=== PATIENT | female | born 1970 | race Caucasian/White ===

== ENCOUNTER 2017-03-31 22:28 | Emergency (ER) | payer BC, OTHER ==
[2017-03-31] MEDS ORDERED: Benoxinate/Fluorescein 0.4-0.25% Ophth Soln 5 ML Bottle EYELF ONE (22:29)
[2017-03-31] MEDS ORDERED: Tetracaine 0.5% 2 ML Bottle ONE (22:37)
[2017-03-31] MEDS ORDERED: Non-Formulary Medication 1 Each EYELF STA (22:45)
[2017-03-31 22:53] VITALS: BP 154/94
--- NOTE | 2017-03-31 22:57 | EDM.PDOC ---
ED HPI GENERAL MEDICAL PROBLEM - General Chief Complaint: Eye Problems Stated Complaint: SWOLLEN EYE Time Seen by Provider: 03/31/17 22:30 Source of Information: Reports: Patient History Limitations: Reports: No Limitations - History of Present Illness INITIAL COMMENTS - FREE TEXT/NARRATIVE: 46 YO WF presents to ER with sensation of a foreign body in her left eye. Pt reports she was driving home tonight when she felt something in her eye. Pt syayes she tried to remove it but it became painful and irritated prompting ER visit. Onset: Today Onset Date: 03/31/17 Onset Time: 21:00 Quality: Reports: Ache Severity: Mild Improves with: Reports: None Worsens with: Reports: None Context: Reports: Activity Associated Symptoms: Reports: No Other Symptoms - Related Data Allergies Allergy/AdvReac Type Severity Reaction Status Date / Time No Known Allergies Allergy Verified 03/31/17 22:51 Home Meds: Home Meds Atenolol [Atenolol] 100 mg PO DAILY 03/31/17 [History] Ciprofloxacin [Ciloxan 0.3% Ophth Soln] 2.5 ml EYEBOTH Q4HR #10 bottle 03/31/17 [Rx] Furosemide [Furosemide] 40 mg PO DAILY 03/31/17 [History] Sertraline HCl [Sertraline HCl] 100 mg PO DAILY 03/31/17 [History] buPROPion HCl [Wellbutrin Xl] 150 mg PO DAILY 03/31/17 [History] Social & Family History - Tobacco Use Years of Tobacco use: 3 ED ROS GENERAL - Review of Systems Review Of Systems: See Below Constitutional: Reports: No Symptoms HEENT: Reports: Eye Pain Respiratory: Reports: No Symptoms Cardiovascular: Reports: No Symptoms Endocrine: Reports: No Symptoms GI/Abdominal: Reports: No Symptoms : Reports: No Symptoms Musculoskeletal: Reports: No Symptoms Skin: Reports: No Symptoms Neurological: Reports: No Symptoms Psychiatric: Reports: No Symptoms Hematologic/Lymphatic: Reports: No Symptoms Immunologic: Reports: No Symptoms ED EXAM GENERAL W FULL EYE - Physical Exam Exam: See Below Exam Limited By: No Limitations General Appearance: Alert, WD/WN, No Apparent Distress Eye Exam: Left Eye: Foreign Body, Bilateral Eye: EOMI, PERRL Visual Acuity (R) 20/: 30 Visual Acuity (L) 20/: 30 With Correction: Yes Eyelids: Left: Foreign Body (a seed) Conjunctiva & Sclera: Bilateral: Normal Appearance Cornea Exam: Bilateral: Normal Appearance Extraocular Movements: Bilateral: Intact Pupils: Normal Accommodation Ears: Normal External Exam, Normal Canal, Hearing Grossly Normal, Normal TMs Nose: Normal Inspection, Normal Mucosa, No Blood Throat/Mouth: Normal Inspection, Normal Lips, Normal Teeth, Normal Gums, Normal Oropharynx, Normal Voice, No Airway Compromise Head: Atraumatic, Normocephalic Neck: Normal Inspection, Supple, Non-Tender, Full Range of Motion Respiratory/Chest: No Respiratory Distress, Lungs Clear, Normal Breath Sounds, No Accessory Muscle Use, Chest Non-Tender Cardiovascular: Normal Peripheral Pulses, Regular Rate, Rhythm, No Edema, No Gallop, No JVD, No Murmur, No Rub GI/Abdominal: Normal Bowel Sounds, Soft, Non-Tender, No Organomegaly, No Distention, No Abnormal Bruit, No Mass Back Exam: Normal Inspection, Full Range of Motion, NT Extremities: Normal Inspection, Normal Range of Motion, Non-Tender, Normal Capillary Refill, No Pedal Edema Neurological: Alert, Oriented, CN II-XII Intact, Normal Cognition, Normal Gait, Normal Reflexes, No Motor/Sensory Deficits Psychiatric: Normal Affect, Normal Mood Course - Orders/Labs/Meds Meds: Medications Discontinued Medications Generic Name Dose Route Start Last Admin Trade Name Jose PRN Reason Stop Dose Admin Tetracaine Confirm 03/31/17 22:37 Pontocaine 0.5% Ophth Drops Administered 03/31/17 22:38 Dose 2 ml .ROUTE .STK-MED ONE Departure - Departure Time of Disposition: 22:57 Disposition: Home, Self-Care 01 Condition: Good Clinical Impression: Foreign body, eye Qualifiers: Encounter type: initial encounter Laterality: left Qualified Code(s): T15.92XA - Foreign body on external eye, part unspecified, left eye, initial encounter - Discharge Information Prescriptions: Ciprofloxacin [Ciloxan 0.3% Ophth Soln] 2.5 ml EYEBOTH Q4HR #10 bottle Instructions: Eye Foreign Body, Rbut-se-Unha Referrals: PCP,Not In Area [Primary Care Provider] - - Assessment/Plan Assessment:: 1. foreign body left upper eyedid Plan: 1. ciloxin 3 gtt Q4 x 3 days 2. follow up with PCP for further management PRN 3. discharge home
[2017-03-31] MEDS ORDERED: Tetracaine 0.5% 2 ML Bottle EYELF ONE (23:04)
== END 2017-03-31 23:05 | disposition home or self-care (01) ==
LOC: KA.ED 22:28
DX: T15.12XA Foreign body in conjunctival sac, left eye, initial encounter (principal); Z79.899 Other long term (current) drug therapy
CPT/HCPCS: 99283; A9270